=== PATIENT | male | born 1985 | race Caucasian/White ===

== ENCOUNTER 2016-11-13 20:04 | Emergency (ER) | payer BC ==
[~2016-11-13] VITALS: Ht 172.7 cm; Wt 61.2 kg
[~2016-11-13 20:04] MED LIST: BACTRIM DS TAB1 EACH PO; BUPRENORPHINE HC8 MG SL; KEFLEX500 MG PO
[2016-12-09] MEDS ORDERED: BUPRENORPHINE HC8 MG SL (23:55)
== END 2016-11-13 22:26 | disposition home or self-care (01) ==
LOC: ED 20:04
DX: R20.2 Paresthesia of skin (principal); F11.10 Opioid abuse, uncomplicated; F17.200 Nicotine dependence, unspecified, uncomplicated; Z88.5 Allergy status to narcotic agent; Z79.899 Other long term (current) drug therapy
CPT/HCPCS: 36415; 80053; 81001; 85025; 99283

== ENCOUNTER 2016-11-30 01:09 | Emergency (ER) | payer BC ==
[~2016-11-30] VITALS: Ht 172.7 cm; Wt 63.5 kg
[2016-11-30] MEDS ORDERED: BUPRENORPHIN-N1 EACH IV (01:48)
[2016-12-09] MEDS ORDERED: BUPRENORPHINE HC8 MG SL (23:55)
== END 2016-11-30 02:00 | disposition home or self-care (01) ==
LOC: ED 01:09
DX: F11.10 Opioid abuse, uncomplicated (principal); M79.2 Neuralgia and neuritis, unspecified; F17.200 Nicotine dependence, unspecified, uncomplicated; Z88.5 Allergy status to narcotic agent
CPT/HCPCS: 99282

== ENCOUNTER 2016-12-03 20:45 | Emergency (ER) | payer BC ==
[~2016-12-03] VITALS: Ht 172.7 cm; Wt 60.8 kg
[~2016-12-03 20:45] MED LIST changes: +BUPRENORPHIN-N1 EACH IV
[2016-12-03] MEDS ORDERED: VISTARIL25 MG PO (21:36)
[2016-12-09] MEDS ORDERED: BUPRENORPHINE HC8 MG SL (23:55)
== END 2016-12-03 22:50 | disposition home or self-care (01) ==
LOC: ED 20:45
DX: M79.662 Pain in left lower leg (principal); M79.661 Pain in right lower leg; M79.622 Pain in left upper arm; M79.621 Pain in right upper arm; F11.10 Opioid abuse, uncomplicated; I45.6 Pre-excitation syndrome; F17.200 Nicotine dependence, unspecified, uncomplicated; Z88.5 Allergy status to narcotic agent; Z79.899 Other long term (current) drug therapy; Z98.890 Other specified postprocedural states
CPT/HCPCS: 36415; 80053; 85025; 99283

== ENCOUNTER 2016-12-07 20:54 | Emergency (ER) | payer BC ==
[~2016-12-07] VITALS: Ht 172.7 cm; Wt 60.8 kg
[~2016-12-07 20:54] MED LIST changes: +VISTARIL25 MG PO
[2016-12-07] MEDS ORDERED: NASAL DECONGEST30 M2 PO (22:48)
[2016-12-09] MEDS ORDERED: BUPRENORPHINE HC8 MG SL (23:55)
== END 2016-12-07 23:16 | disposition home or self-care (01) ==
LOC: ED 20:54
DX: H65.03 Acute serous otitis media, bilateral (principal); I45.6 Pre-excitation syndrome; F17.200 Nicotine dependence, unspecified, uncomplicated; Z88.5 Allergy status to narcotic agent; Z79.899 Other long term (current) drug therapy
CPT/HCPCS: 99283

== ENCOUNTER 2016-12-08 00:37 | Emergency (ER) | payer BC ==
[~2016-12-08] VITALS: Ht 172.7 cm; Wt 60.8 kg
[~2016-12-08 00:37] MED LIST changes: +NASAL DECONGEST30 M2 PO
[2016-12-09] MEDS ORDERED: BUPRENORPHINE HC8 MG SL (23:55)
== END 2016-12-08 02:43 | disposition home or self-care (01) ==
LOC: ED 00:37
DX: F41.9 Anxiety disorder, unspecified (principal); I45.6 Pre-excitation syndrome; F17.200 Nicotine dependence, unspecified, uncomplicated; Z98.890 Other specified postprocedural states; Z88.5 Allergy status to narcotic agent; Z79.899 Other long term (current) drug therapy
CPT/HCPCS: 81001; 99283

== ENCOUNTER 2016-12-10 23:27 | Emergency (ER) | payer BC ==
[~2016-12-10] VITALS: Ht 172.7 cm; Wt 60.8 kg
== END 2016-12-11 00:13 | disposition home or self-care (01) ==
LOC: ED 23:27
DX: F11.20 Opioid dependence, uncomplicated (principal); F17.200 Nicotine dependence, unspecified, uncomplicated; Z88.5 Allergy status to narcotic agent
CPT/HCPCS: 99282

== ENCOUNTER 2016-12-12 03:13 | Emergency (ER) | payer BC ==
[~2016-12-12] VITALS: Ht 172.7 cm; Wt 60.8 kg
== END 2016-12-12 04:44 | disposition home or self-care (01) ==
LOC: ED 03:13
DX: F41.1 Generalized anxiety disorder (principal); F17.200 Nicotine dependence, unspecified, uncomplicated; Z88.5 Allergy status to narcotic agent; Z79.899 Other long term (current) drug therapy
CPT/HCPCS: 82310; 84075; 84100; 84436; 84479; 84480; 84550; 85651; 86038; 86060; 86140; 86431; 99283

== ENCOUNTER 2016-12-20 23:38 | Emergency (ER) | payer BC ==
[~2016-12-20] VITALS: Ht 172.7 cm; Wt 60.8 kg
== END 2016-12-21 03:20 | disposition home or self-care (01) ==
LOC: ED 23:38
DX: F41.0 Panic disorder [episodic paroxysmal anxiety] (principal); I45.6 Pre-excitation syndrome; F17.200 Nicotine dependence, unspecified, uncomplicated; Z88.5 Allergy status to narcotic agent
CPT/HCPCS: 99282

== ENCOUNTER 2017-01-11 21:15 | Emergency (ER) | payer BC | END 2017-01-11 22:49 | disposition left against medical advice (07) | LOC: ED 21:15 | DX: S61.211A Laceration without foreign body of left index finger without damage to nail, initial encounter (principal); Z53.21 Procedure and treatment not carried out due to patient leaving prior to being seen by health care provider; X58.XXXA Exposure to other specified factors, initial encounter ==

== ENCOUNTER 2017-05-11 16:29 | Emergency (ER) | payer BC ==
[~2017-05-11] VITALS: Ht 172.7 cm; Wt 59.0 kg
== END 2017-05-11 16:48 | disposition home or self-care (01) ==
LOC: ED 16:29
DX: M25.511 Pain in right shoulder (principal); W19.XXXA Unspecified fall, initial encounter

== ENCOUNTER 2018-09-11 22:13 | Emergency (ER) | payer SELFPAY ==
[~2018-09-11] VITALS: Ht 172.7 cm; Wt 63.0 kg
--- OUTSIDE RECORDS SUMMARY | ~2018-09-11 | XMS | Clinical Summary ---
Demographics + + + | Address | [address] | | | [place] [address] | + + + | Home Phone | | + + + | Preferred Language | Unknown | + + + | Marital Status | | + + + | Tenriism Affiliation | Unknown | + + + | Race | Unknown | + + + | Ethnic Group | Unknown | + + + Author + + + | Author | [email or web address] | + + + | Organization | [facility] | + + + | Address | Unknown | + + + | Phone | Unavailable | + + + Care Team Providers + +------+ + | Care Oxygen Equipment Technician Name | Role | Phone | + [...] Vaccine: Influenza | | | | | (Season Ended) | 9 | | | + + [...] +------+-------+ + | PREMERA | PREMER | [id number] | | | [address] [address] | | | [place] | | | | [place], [place] | | | [place] | | | | [address] | | | FED | | | [...] Self | [birth year] | Home: | [address] | | | al/Fam | | 1985 | [phone] | [address] [place] | | | [place] | | | [address] | [phone] | + +--------+ +--------+ + +"
--- OUTSIDE RECORDS SUMMARY | ~2018-09-11 | XMS | Clinical Summary ---
Demographics + + + | Address | [address] | | | [place] [address] | + + + | Home Phone | | + + + | Preferred Language | Unknown | + + + | Marital Status | | + + + | Alevism Affiliation | Unknown | + + + | Race | Unknown | + + + | Ethnic Group | Unknown | + + + Author + + + | Author | [facility] | + + + | Organization | [facility] | + + + | Address | Unknown | + + + | Phone | Unavailable | + + + Care Team Providers + +------+ + | Care Deputy Administrator Name | Role | Phone | + [...] +------+-------+ + | PREMERA | PREMER | [id number] | | | [address] [address] | | | [place] | | | | [place], [place] | | | [place] | | | | [address] | | | FED | | | [...] Self | [birth year] | Home: | [address] | | | al/Fam | | 1985 | [phone] | [address] [place] | | | [place] | | | [address] | [address] | + +--------+ +--------+ + +"
--- OUTSIDE RECORDS SUMMARY | 2018-09-11 22:16 | XMS ---
PreManage Notification: HENRY REYNA Security Transcribing Operator Head Events No recent Security Events currently on file CRITERIA MET - Group Notification - PDMP CARE PROVIDERS MARYSOL CHANG Nurse Practitioner: Current PHONE: Unknown Sammy Henderson Current PHONE: Unknown PCP_Unattributed Primary Care 09/20/2015-Current PHONE: Unknown MARYSOL CHANG Primary Care 09/20/2015-Current PHONE: [phone] Corrie has no Care Guidelines for this patient. Noah VISIT COUNT (12 MO.) 1 [facility] TOTAL 1 NOTE: Visits indicate total known visits. ED/UCC VISIT TRACKING (12 MO.) 09/11/2018 22:13 [facility] [place] TYPE: Emergency COMPLAINT: - DENTAL PAIN INPATIENT VISIT TRACKING (12 MO.) No inpatient visits to display in this time frame [email or web address]
[2018-09-12] MEDS ORDERED: CEPHALEXIN500 MG PO (00:28)
== END 2018-09-12 00:41 | disposition home or self-care (01) ==
LOC: ED 22:13
DX: K08.89 Other specified disorders of teeth and supporting structures (principal); F17.200 Nicotine dependence, unspecified, uncomplicated; Z90.89 Acquired absence of other organs; Z88.5 Allergy status to narcotic agent
CPT/HCPCS: 99282

== ENCOUNTER 2019-02-16 09:19 | Emergency (ER) | payer OTHER ==
[~2019-02-16] VITALS: Ht 172.7 cm; Wt 63.0 kg
--- OUTSIDE RECORDS SUMMARY | ~2019-02-16 | XMS | Clinical Summary ---
Demographics + + + | Address | [address] | | | [place] [address] | + + + | Home Phone | | + + + | Preferred Language | Unknown | + + + | Marital Status | | + + + | Zoroastrianism Affiliation | Unknown | + + + | Race | Unknown | + + + | Ethnic Group | Unknown | + + + Author + + + | Author | [facility] (Historical as of | | | 12-05-18) | + + + | Organization | [facility] (Historical as of | | | 12-05-18) | + + + | Address | Unknown | + + + | Phone | Unavailable | + + + Care Team Providers + +------+ + | Care Dairy Clerk Name | Role | Phone | + +------+ + | Dayday Gutierrez MD | PP | | + +------+ + Allergies Not on File Current Medications Not on file Active Problems Not on file Social History + +-------+ +--------+------+ | Tobacco Use | Types | Packs/Day | Years | Date | | | | | Used | | + +-------+ +--------+------+ | Never Assessed | | | | | + +-------+ +--------+------+ + + + | Sex Assigned at | Date Recorded | | | | + + + | Not on file | | + + + Plan of Treatment + + + + + | Health Maintenance | Due Date | Last Done | Comments | + + + + + | Vaccine: | | | | | Dtap/Tdap/Td (1 - | 7 | | | | Tdap) | | | | + + + + + | Vaccine: Influenza | | | | | (#1) | 9 | | | + + + + + Results Not on filefrom Last 3 Months Insurance +---------+--------+ +------+-------+ + | Payer | Benefi | Subscriber | Type | Phone | Address | | | t Plan | ID | | | | | | / | | | | | | | Group | | | | | +---------+--------+ +------+-------+ + | PREMERA | PREMER | [id number] | | | [address] [address] | | | [place] | | | | [place] | | | [place] | | | | [address] | | | FED | | | | | | | PPO | | | | | +---------+--------+ +------+-------+ + + +--------+ +--------+ + + | Guarantor Name | Accoun | Relation to | Date | Phone | Billing Address | | | t Type | Patient | of | | | | | | | | | | + +--------+ +--------+ + + | FRANK ROCHA | Person | Self [birth year] Home: | [address] | | | al/Fam | | 1985 | [phone] | [address] [place] | | | [place] | | | [phone] | [phone] | + +--------+ +--------+ + +"
--- OUTSIDE RECORDS SUMMARY | ~2019-02-16 | XMS | Clinical Summary ---
Demographics + + + | Address | [address] | | | [place] [address] | + + + | Home Phone | | + + + | Preferred Language | Unknown | + + + | Marital Status | | + + + | Taoist Affiliation | Unknown | + + + | Race | Unknown | + + + | Ethnic Group | Unknown | + + + Author + + + | Author | [email or web address] (Historical as of | | | 12-05-18) | + + + | Organization | [email or web address] (Historical as of | | | 12-05-18) | + + + | Address | Unknown | + + + | Phone | Unavailable | + + + Care Team Providers + +------+ + | Care Filler Wiper Name | Role | Phone | + [...] +------+-------+ + | PREMERA | PREMER | [id number] | | | [address] [address] | | | [place] | | | | [place] | | | [place] | | | | [phone] | | | FED | | | [...] Self | [birth year] | Home: | [address] | | | al/Fam | | 1985 | [phone] | [address] [place] | | | [place] | | | [address] | [phone] | + +--------+ +--------+ + +"
[~2019-02-16 09:19] MED LIST changes: +CEPHALEXIN500 MG PO
--- OUTSIDE RECORDS SUMMARY | 2019-02-16 09:22 | XMS ---
PreManage Notification: HENRY REYNA Security Pasteurizer Events No recent Security Events currently on file CRITERIA MET - Group Notification - PDMP CARE PROVIDERS MARYSOL CHANG Nurse Practitioner: Current PHONE: Unknown Sammy Henderson Current PHONE: Unknown DAY JOHNSON Primary Care 09/20/2015-Current PHONE: [phone] MARYSOL CHANG Primary Care 09/20/2015-Current PHONE: [phone] Corrie has no Care Guidelines for this patient. Noah VISIT COUNT (12 MO.) 2 CAM Luong TOTAL 2 NOTE: Visits indicate total known visits. ED/UCC VISIT TRACKING (12 MO.) 02/16/2019 09:20 [facility] [place] TYPE: Emergency COMPLAINT: - LEFT FINGER PAIN, INJ 09/11/2018 22:[address] [facility] [place] TYPE: Emergency COMPLAINT: - DENTAL PAIN DIAGNOSES: - Allergy status to narcotic agent status - Nicotine dependence, unspecified, uncomplicated - Other specified disorders of teeth and supporting structures - Acquired absence of other organs INPATIENT VISIT TRACKING (12 MO.) No inpatient visits to display in this time frame [id number]
== END 2019-02-16 10:20 | disposition home or self-care (01) ==
LOC: ED 09:19
DX: S61.211A Laceration without foreign body of left index finger without damage to nail, initial encounter (principal); W26.8XXA Contact with other sharp object(s), not elsewhere classified, initial encounter; Y99.0 Civilian activity done for income or pay; F17.200 Nicotine dependence, unspecified, uncomplicated; Z88.5 Allergy status to narcotic agent; Z79.899 Other long term (current) drug therapy
CPT/HCPCS: 99282